=== PATIENT | female | born 1965 | race Caucasian/White ===

== ENCOUNTER 2024-12-21 18:00 | Emergency (ER) | payer MEDICARE, MEDICAID, SELFPAY ==
[2024-12-21 18:12] VITALS: BP 140/93; PULSE 77; TEMP 36.8; O2SAT 98; BMI 24.3
[2024-12-21] MEDS: HYDROCODONE/ACET 5-325 MG TABLET 1 TAB PO (19:01)
--- NOTE | 2024-12-21 19:07 | PC.NURSE ---
i walked into this patient's room to find this patient lying awake and alert on her right side of the bed. i introduced myself to this patient and told her the plan of care for her, pain medication and a ct scan. this patient voices no other complaints, needs and shows no signs of distress
--- NOTE | 2024-12-21 19:15 | ED.GENADUL1 ---
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 She denies hitting her head. She is on Plavix for history of stroke. She does have some mild right upper extremity residual weakness at times. She states she was unable to get up from the floor and needed help from family members. She tried to take [id number] pain medication but pain has been uncontrolled. She denies any chest pain, shortness of breath, or abdominal pain. She states she has had a previous injury to her lumbar spine and had a crack in one of the bones but she is unsure which one. Related Data Home Medications ?Medication ?Instructions ?Recorded ?Confirmed acetazolamide 500 mg 500 mg PO Q12H 12/21/24 12/21/24 capsule,extended release brimonidine 0.2 %-timolol 0.5 % 1 drp ophthalmic (eye) Q12H 12/21/24 12/21/24 eye drops clopidogrel 75 mg tablet 75 mg PO QDAY 12/21/24 12/21/24 dulaglutide 4.5 mg/0.5 mL 4.5 mg subcut QWEEK 12/21/24 12/21/24 subcutaneous pen injector (Trulicity) empagliflozin 25 mg tablet 25 mg PO DAILY 12/21/24 12/21/24 (Jardiance) insulin degludec 100 unit/mL (3 20 unit subcut Q24H 12/21/24 12/21/24 mL) subcutaneous pen (Tresiba FlexTouch U-100 insulin) loratadine 10 mg tablet 10 mg PO Q24H 12/21/24 12/21/24 lovastatin 40 mg tablet 40 mg PO BEDTIME 12/21/24 12/21/24 metformin 1,000 mg tablet 1,000 mg PO DAILY 12/21/24 12/21/24 pantoprazole 40 mg tablet,delayed 40 mg PO DAILY 12/21/24 12/21/24 release Allergies Allergy/AdvReac Type Severity Reaction Status Date / Time aspirin Allergy Intermediate Hives Verified 12/21/24 18:12 Opioid HPI Opioid Management Most Recent Opioid Data: Last Pain Scale 5 12/21/24, 21:00 Last ED Pain Assessment 12/21/24, 20:12 Last MAR Pain Assessment 12/21/24, 19:01 Review of Systems ROS Status of ROS 10 or more systems reviewed and unremarkable except as noted in history and below PFSH PFSH Social History Little interest or pleasure in doing things: not at all Feeling down, depressed, or hopeless: not at all Exam Narrative Exam Narrative: General: No distress, age-appropriate Skin: Warm, dry, no pallor. No rash. Head: Normocephalic, atraumatic. Neck: Supple, non-tender. Eye: Pupils are equal, round and EOMI. No scleral icterus. Ears, Nose, Mouth, and Throat: No nasal mucosal hypertrophy. Oral mucosa is moist, no posterior oropharynx erythema, uvula is mid-line Cardiovascular: Regular Rate and Rhythm without murmur, gallop or rub. Respiratory: No accessory muscle use or respiratory distress. Lungs are clear to auscultation, no wheezing, rales or rhonchi Chest Wall: no tenderness Back: No midline thoracic or lumbar vertebral tenderness, there is sacral tenderness with palpation. Musculoskeletal: Full ROM of all extremities, no calf or popliteal tenderness GI: Abdomen is soft, non-distended, non tender to palpation. No masses appreciated. No rebound, guarding, or rigidity noted. Neurological: A&O x4. No cranial nerve dysfunction observed. No truncal ataxia. Moves all extremities. Sensation intact. 5/5 strength bilateral lower extremities. Psychiatric: Cooperative and interactive. Normal mood and affect. Constitutional Vital Signs, click to edit/add: Last Vital Signs Temp 98.2 F 12/21/24 18:12 Pulse 93 H 12/21/24 21:00 Resp 18 12/21/24 21:00 BP 151/79 H 12/21/24 21:00 Pulse Ox 99 12/21/24 21:00 O2 Del Method Room Air 12/21/24 18:12 Course Vital Signs Vital signs: Vital Signs Temperature 98.2 F 12/21/24 18:12 Pulse Rate 77 12/21/24 18:12 Respiratory Rate 18 12/21/24 18:12 Blood Pressure 140/93 H 12/21/24 18:12 Pulse Oximetry 98 12/21/24 18:12 Oxygen Delivery Method Room Air 12/21/24 18:12 Temperature 98.2 F 12/21/24 18:12 Pulse Rate 93 H 12/21/24 21:00 Respiratory Rate 18 12/21/24 21:00 Blood Pressure 151/79 H 12/21/24 21:00 Pulse Oximetry 99 12/21/24 21:00 Oxygen Delivery Method Room Air 12/21/24 18:12 Medical Decision Making MDM Narrative Medical decision making narrative: Patient is a 59-year-old female who is blind in the left eye, and partially blind in the right eye that presented to the emergency department today with complaints of sacral pain after a fall onto her buttocks when she went to sit down on the couch and missed it. She was unable to get up and had to have her family help her. She has attempted OTC NSAIDs without relief of her pain. She is on Plavix for history of stroke. She denies hitting her head during the fall. She is GCS 15 on arrival. Vital stable. Airway is patent, breath sounds auscultated bilaterally and are equal. 2+ radial, femoral, and DP pulses palpated. Chest is nontender, abdomen is nontender. Pelvis is stable. C/T/L-spine are nontender midline. Sacrum is tender with palpation. No signs of trauma on exam. [place] [address] pelvis without contrast ordered. This resulted with an acute comminuted nondisplaced fracture of the midportion of S4. Patient without any bowel or bladder incontinence. Notified of results. On reexamination patient's pain is more controlled, patient is going to have her daughter pick her up. Vitals have been stable here. Patient's pain is controlled and she will be discharged with follow-up to be scheduled with Ortho. Differential Diagnosis Differential Diagnosis: Sacral fracture, pelvic fracture Discharge Plan Discharge Chief Complaint: Fall Clinical Impression: Fracture of sacrum and coccyx Patient Disposition: Home, Self-Care Time of Disposition Decision: 20:56 Condition: Good Mode of Transportation: Private Vehicle Prescriptions / Home Meds: No Action acetazolamide 500 mg capsule, extended release 500 mg PO Q12H brimonidine-timolol 0.2-0.5 % drops 1 drp OPHTHALMIC (EYE) Q12H Rx Instructions: RIGHT EYE clopidogrel 75 mg tablet 75 mg PO QDAY Trulicity 4.5 mg/0.5 mL pen injector 4.5 mg SUBCUT QWEEK Jardiance 25 mg tablet 25 mg PO DAILY insulin degludec [Tresiba FlexTouch U-100] 100 unit/mL (3 mL) insulin pen 20 unit SUBCUT Q24H loratadine 10 mg tablet 10 mg PO Q24H lovastatin 40 mg tablet 40 mg PO BEDTIME metformin 1,000 mg tablet 1,000 mg PO DAILY pantoprazole 40 mg tablet,delayed release (DR/EC) 40 mg PO DAILY Print Language: Mal[place]ian Instructions: Sacral Fracture (ED) Referrals: John Daniel DO [Physician, Orthopedics] - 1 week Referral Note: Call tomorrow to arrange follow-up for sacral fracture. Physician,Non-Staff, MD [Primary Care Provider] - 1 week Discharge Date/Time: 12/21/24 21:34 Documented by User: Bernardo Curtis 12/22/24 02:18 HPI HPI - General Adult General Chief complaint: Fall Stated complaint: FALL Time Seen by Provider: 12/21/24 18:17 Related Data Home Medications ?Medication ?Instructions ?Recorded ?Confirmed acetazolamide 500 mg 500 mg PO Q12H 12/21/24 12/21/24 capsule,extended release brimonidine 0.2 %-timolol 0.5 % 1 drp ophthalmic (eye) Q12H 12/21/24 12/21/24 eye drops clopidogrel 75 mg tablet 75 mg PO QDAY 12/21/24 12/21/24 dulaglutide 4.5 mg/0.5 mL 4.5 mg subcut QWEEK 12/21/24 12/21/24 subcutaneous pen injector (Trulicity) empagliflozin 25 mg tablet 25 mg PO DAILY 12/21/24 12/21/24 (Jardiance) insulin degludec 100 unit/mL (3 20 unit subcut Q24H 12/21/24 12/21/24 mL) subcutaneous pen (Tresiba FlexTouch U-100 insulin) loratadine 10 mg tablet 10 mg PO Q24H 12/21/24 12/21/24 lovastatin 40 mg tablet 40 mg PO BEDTIME 12/21/24 12/21/24 metformin 1,000 mg tablet 1,000 mg PO DAILY 12/21/24 12/21/24 pantoprazole 40 mg tablet,delayed 40 mg PO DAILY 12/21/24 12/21/24 release Allergies Allergy/AdvReac Type Severity Reaction Status Date / Time aspirin Allergy Intermediate Hives Verified 12/21/24 18:12 Opioid HPI Opioid Management Most Recent Opioid Data: Last Pain Scale 5 12/21/24, 21:00 Last ED Pain Assessment 12/21/24, 20:12 Last MAR Pain Assessment 12/21/24, 19:01 PFSH PFSH Social History Little interest or pleasure in doing things: not at all Feeling down, depressed, or hopeless: not at all Exam Constitutional Vital Signs, click to edit/add: Last Vital Signs Temp 98.2 F 12/21/24 18:12 Pulse 93 H 12/21/24 21:00 Resp 18 12/21/24 21:00 BP 151/79 H 12/21/24 21:00 Pulse Ox 99 12/21/24 21:00 O2 Del Method Room Air 12/21/24 18:12 Course Vital Signs Vital signs: Vital Signs Temperature 98.2 F 12/21/24 18:12 Pulse Rate 77 12/21/24 18:12 Respiratory Rate 18 12/21/24 18:12 Blood Pressure 140/93 H 12/21/24 18:12 Pulse Oximetry 98 12/21/24 18:12 Oxygen Delivery Method Room Air 12/21/24 18:12 Temperature 98.2 F 12/21/24 18:12 Pulse Rate 93 H 12/21/24 21:00 Respiratory Rate 18 12/21/24 21:00 Blood Pressure 151/79 H 12/21/24 21:00 Pulse Oximetry 99 12/21/24 21:00 Oxygen Delivery Method Room Air 12/21/24 18:12 Medical Decision Making MDM Narrative Medical decision making narrative: Patient is a 59-year-old female who is blind in the left eye, and partially blind in the right eye that presented to the emergency department today with complaints of sacral pain after a fall onto her buttocks when she went to sit down on the couch and missed it. She was unable to get up and had to have her family help her. She has attempted OTC NSAIDs without relief of her pain. She is on Plavix for history of stroke. She denies hitting her head during the fall. She is GCS 15 on arrival. Vital stable. Airway is patent, breath sounds auscultated bilaterally and are equal. 2+ radial, femoral, and DP pulses palpated. Chest is nontender, abdomen is nontender. Pelvis is stable. C/T/L-spine are nontender midline. Sacrum is tender with palpation. No signs of trauma on exam. [place] [address] pelvis without contrast ordered. This resulted with an acute comminuted nondisplaced fracture of the midportion of S4. Patient without any bowel or bladder incontinence. Notified of results. On reexamination patient's pain is more controlled, patient is going to have her daughter pick her up. Vitals have been stable here. Patient's pain is controlled and she will be discharged with follow-up to be scheduled with Ortho. Attending physician note -after speaking with the physician sales assistant about this patient, I met with the patient to discuss the CT results. She has a fracture at the S4 portion of the sacrum. She was informed of this and we discussed means in which she could heal at home. She was discharged home with recommendation to return to the emergency department if her pain worsens. - [place], Discharge Plan Discharge Chief Complaint: Fall Clinical Impression: Fracture of sacrum and coccyx Patient Disposition: Home, Self-Care Time of Disposition Decision: 20:56 Condition: Good Mode of Transportation: Private Vehicle Prescriptions / Home Meds: No Action acetazolamide 500 mg capsule, extended release 500 mg PO Q12H brimonidine-timolol 0.2-0.5 % drops 1 drp OPHTHALMIC (EYE) Q12H Rx Instructions: RIGHT EYE clopidogrel 75 mg tablet 75 mg PO QDAY Trulicity 4.5 mg/0.5 mL pen injector 4.5 mg SUBCUT QWEEK Jardiance 25 mg tablet 25 mg PO DAILY insulin degludec [Tresiba FlexTouch U-100] 100 unit/mL (3 mL) insulin pen 20 unit SUBCUT Q24H loratadine 10 mg tablet 10 mg PO Q24H lovastatin 40 mg tablet 40 mg PO BEDTIME metformin 1,000 mg tablet 1,000 mg PO DAILY pantoprazole 40 mg tablet,delayed release (DR/EC) 40 mg PO DAILY Print Language: [place]ian Instructions: Sacral Fracture (ED) Referrals: John Daniel DO [Physician, Orthopedics] - 1 week Referral Note: Call tomorrow to arrange follow-up for sacral fracture. Physician,Non-Staff, MD [Primary Care Provider] - 1 week Discharge Date/Time: 12/21/24 21:34
[2024-12-21 19:35] VITALS: BP 136/74; PULSE 91; O2SAT 98
[2024-12-21 20:12] VITALS: BP 130/65; PULSE 90; O2SAT 99
[2024-12-21 21:00] VITALS: BP 151/79; PULSE 93; O2SAT 99
--- NOTE | 2024-12-21 21:35 | PC.NURSE ---
i gave this patient verbal and written discharge orders and this patient voices yes to understanding these. at time of discharge this patient voices no concerns, needs and shows no signs of distress
== END 2024-12-21 21:34 | disposition home or self-care (01) ==
PROVIDERS: Emergency Provider Student in an Organized Health Care Education/Training Program
DX: S32.10XA Unspecified fracture of sacrum, initial encounter for closed fracture (principal); S32.2XXA Fracture of coccyx, initial encounter for closed fracture; W18.39XA Other fall on same level, initial encounter; H54.40 Blindness, one eye, unspecified eye; Z79.02 Long term (current) use of antithrombotics/antiplatelets; Z86.73 Personal history of transient ischemic attack (TIA), and cerebral infarction without residual deficits
CPT/HCPCS: 72192; 76376; 99284